=== PATIENT | female | born 1995 | race American Indian/Alaskan Native ===

== ENCOUNTER → 2025-07-23 | Outpatient (CLI) | payer OTHER, SELFPAY ==
--- NOTE | 2025-07-23 08:18 | XR_ITS ---
EXAMINATION: Ankle, left 3 views . Technique: Ankle AP, oblique, lateral 3 views Date and time of exam: July 23, 2025 0835 hours INDICATIONS: Patient fell 2 weeks ago with injury to ankle, ankle pain. FINDINGS: Mild ankle osteoarthritis No acute fracture No dislocation IMPRESSION: No acute fracture
--- NOTE | 2025-07-23 08:18 | XR_ITS ---
Examination: Right knee 2 views Technique one AP lateral right knee 2 views Date and time: July 23, 2025 0845 hours INDICATIONS: Patient fell 2 weeks ago with injury to the knee, knee pain FINDINGS: No fracture or dislocation. Mild tricompartment osteoarthritis IMPRESSION: No fracture or dislocation
--- NOTE | 2025-07-23 08:18 | XR_ITS ---
Examination: Wrist, left 3 views Technique: Wrist AP, oblique, lateral 3 views Date and time of exam: July 23, 2025 0836 hours INDICATIONS: Patient fell 2 weeks ago with injury to the wrist, wrist pain. FINDINGS: Mild narrowing radiocarpal joint. No fracture or dislocation IMPRESSION: No fracture or dislocation
== END | disposition home or self-care (01) ==
LOC: CDIM 08:08
PROVIDERS: PCP Nurse Practitioner Family; Referring Provider Nurse Practitioner Family; Visit Provider Nurse Practitioner Family
DX: S69.92XA Unspecified injury of left wrist, hand and finger(s), initial encounter (principal); S99.912A Unspecified injury of left ankle, initial encounter; S89.91XA Unspecified injury of right lower leg, initial encounter; W19.XXXA Unspecified fall, initial encounter
CPT/HCPCS: 73110; 73560; 73610